=== PATIENT | female | born 1945 | race Caucasian/White ===

== ENCOUNTER 2021-05-27 19:37 | Inpatient (IN) ==
[2021-05-27] MEDS ORDERED: Naloxone 0.4 MG/ML INJ IVP PRN (19:50)
[2021-05-27] MEDS: Ipratropium/Albuterol Neb 3 ML IH SCH (20:00)
[2021-05-28] MEDS: Ipratropium/Albuterol Neb 3 ML IH SCH ×2 (00:22→04:10)
[2021-05-28] MEDS: Ondansetron 4 MG/2 ML VIAL IVP PRN ×2 (00:39→09:23)
[2021-05-28] MEDS: *HR* HYDROcodone/Acet 5/325 mg TABLET PO PRN ×2 (00:40→09:23)
[2021-05-28 05:04] LABS: Hematocrit 41.9 % (35.3-44.9); Hemoglobin 12.8 g/dL (11.5-15.4); Mean Corpuscular HGB Conc 30.5 g/dL (31.6-35.5); Mean Corpuscular Volume 91.7 fL (83.0-100.0); Mean Platelet Volume 9.3 fL (9.4-12.4); Platelet Count 238 K/mcL (140-400); Red Blood Count 4.57 M/mcL (3.82-4.97); Red Cell Distribution Width 14.6 % (11.5-14.5); White Blood Count 8.7 K/mcL (4.3-11.1)
[2021-05-28] MEDS ORDERED: D5% in Water 1,000 ML IVC PRN (05:17)
[2021-05-28] MEDS ORDERED: Dextrose Gel 15 GM/37.5 ML TUBE PO PRN ×2 (05:17)
[2021-05-28] MEDS ORDERED: *HR* Dextrose 50 % in Water (Syg) 50 ML SYRINGE IVP PRN (05:17)
[2021-05-28 05:22] LABS: BUN/Creatinine Ratio 21 (6-26); Blood Urea Nitrogen 17 mg/dL (8-23); Calcium 8.2 mg/dL (8.6-10.3); Carbon Dioxide 32 mEq/L (23-29); Chloride 97 mEq/L (98-107); Chol/HDL Ratio 4.2 (0-4.9); Cholesterol 185 mg/dL (< 200); Glucose 292 mg/dL (70-105); HDL Cholesterol 44 mg/dL (40-59); LDL Cholesterol,Calculated 126 mg/dL (< 100); Magnesium 1.4 mg/dL (1.6-2.6); Osmolality,Calculated 290 (280-300); Sodium 134 mEq/L (136-145); Triglycerides 76 mg/dL (< 150); eGFR For African Americans > 60 (> 60); eGFR For Non-African Americans > 60 (> 60)
[2021-05-28] MEDS: *HR* Enoxaparin 40 MG/0.4 ML SYRINGE SQ SCH (06:20)
[2021-05-28] MEDS ORDERED: Ipratropium 1 PUFF INHALER IH ONE (06:58)
[2021-05-28] MEDS: Ipratropium 1 PUFF INHALER IH SCH ×4 (07:22→20:08)
[2021-05-28] MEDS ORDERED: Furosemide 40 MG TABLET PO SCH (09:00)
[2021-05-28] MEDS: Insulin LISPRO 300 UNITS/3 ML VIAL SUBQ SCH ×3 (09:22→17:46)
[2021-05-28] MEDS: Dexamethasone Sodium Phos/PF 10 MG/ML VIAL IVP SCH (09:23)
[2021-05-28] MEDS: levoFLOXacin 750 MG/150 ML 750 MG/150 ML BAG IVPB SCH (09:24)
[2021-05-28] MEDS: Gabapentin 400 MG CAPSULE PO SCH (09:24)
[2021-05-28] MEDS: Insulin DETEMIR 100 UNIT/ML X5UNITS SUBQ SCH ×2 (09:25→22:58)
[2021-05-28] MEDS ORDERED: Famotidine 20 MG/2 ML VIAL IVP ONE (09:55)
[2021-05-28] MEDS: *HR* OxyCODONE/APAP 10/325 TABLET PO PRN ×2 (11:29→23:41)
[2021-05-28 11:52] LABS: Amylase 12 Units/L (29-103); Lipase 9 Units/L (11-82)
[2021-05-28 14:03] LABS: Estimated Average Glucose 209 mg/dl; Hemoglobin A1C 8.9 %
[2021-05-28] MEDS ORDERED: Remdesivir 200 MG in 0.9 % Sodium Chloride 100 ML IVPB ONE (14:17)
[2021-05-28 15:04] LABS: Ferritin 38 ng/mL (10-120)
[2021-05-28 15:56] LABS: C-Reactive Protein 44 mg/L (Less than 10)
[2021-05-28] MEDS: Furosemide 20 MG/2 ML VIAL IVP SCH (22:58)
[2021-05-28] MEDS: Remdesivir 100 MG in 0.9 % Sodium Chloride 100 ML IVPB SCH (22:58)
[2021-05-29] MEDS: Ipratropium 1 PUFF INHALER IH SCH ×7 (00:08→23:22)
[2021-05-29 03:30] LABS: Hematocrit 39.9 % (35.3-44.9); Hemoglobin 12.2 g/dL (11.5-15.4); Mean Corpuscular HGB Conc 30.6 g/dL (31.6-35.5); Mean Corpuscular Hemoglobin 27.8 pg (28.0-33.3); Mean Corpuscular Volume 90.9 fL (83.0-100.0); Mean Platelet Volume 9.8 fL (9.4-12.4); Platelet Count 243 K/mcL (140-400); Red Blood Count 4.39 M/mcL (3.82-4.97); Red Cell Distribution Width 14.5 % (11.5-14.5); White Blood Count 9.5 K/mcL (4.3-11.1)
[2021-05-29 03:47] LABS: Calcium 8.3 mg/dL (8.6-10.3); Magnesium 1.5 mg/dL (1.6-2.6)
[2021-05-29 04:00] LABS: Albumin 3.2 g/dL (3.5-5.7); Albumin/Globulin Ratio 1.1 (1.1-2.2); Bilirubin,Direct 0.1 mg/dL (0.0-0.2); Bilirubin,Indirect 0.2 mg/dL (0.0-1.0); Bilirubin,Total 0.3 mg/dL (0.3-1.0); Total Protein 6.2 g/dL (6.4-8.9)
[2021-05-29] MEDS: Acetaminophen 325 MG TABLET PO PRN (04:10)
[2021-05-29] MEDS: *HR* Enoxaparin 40 MG/0.4 ML SYRINGE SQ SCH (04:10)
[2021-05-29] MEDS: Dexamethasone Sodium Phos/PF 10 MG/ML VIAL IVP SCH (08:52)
[2021-05-29] MEDS: Gabapentin 400 MG CAPSULE PO SCH (08:52)
[2021-05-29] MEDS: *HR* OxyCODONE/APAP 10/325 TABLET PO PRN ×2 (08:53→15:43)
[2021-05-29] MEDS: Furosemide 20 MG/2 ML VIAL IVP SCH (08:53)
[2021-05-29] MEDS: levoFLOXacin 750 MG/150 ML 750 MG/150 ML BAG IVPB SCH (08:54)
[2021-05-29] MEDS: Insulin DETEMIR 100 UNIT/ML X5UNITS SUBQ SCH ×2 (08:54→21:28)
[2021-05-29] MEDS: Insulin LISPRO 300 UNITS/3 ML VIAL SUBQ SCH ×3 (08:55→17:18)
[2021-05-29] MEDS: amLODIPine 5 MG TABLET PO SCH (15:43)
[2021-05-29] MEDS: *HR* LORazepam 0.5 MG TABLET PO PRN (21:29)
[2021-05-29] MEDS: Remdesivir 100 MG in 0.9 % Sodium Chloride 100 ML IVPB SCH (21:30)
[2021-05-30] MEDS: *HR* OxyCODONE/APAP 10/325 TABLET PO PRN ×3 (01:56→21:28)
[2021-05-30] MEDS: Ipratropium 1 PUFF INHALER IH SCH ×5 (02:57→21:37)
[2021-05-30] MEDS: *HR* Enoxaparin 40 MG/0.4 ML SYRINGE SQ SCH (06:05)
[2021-05-30 08:49] LABS: Hematocrit 42.2 % (35.3-44.9); Hemoglobin 12.9 g/dL (11.5-15.4); Mean Corpuscular HGB Conc 30.6 g/dL (31.6-35.5); Mean Corpuscular Hemoglobin 27.9 pg (28.0-33.3); Mean Corpuscular Volume 91.1 fL (83.0-100.0); Platelet Count 274 K/mcL (140-400); Red Blood Count 4.63 M/mcL (3.82-4.97); Red Cell Distribution Width 14.6 % (11.5-14.5); White Blood Count 12.8 K/mcL (4.3-11.1)
[2021-05-30 09:03] LABS: Albumin 3.3 g/dL (3.5-5.7); Albumin/Globulin Ratio 0.9 (1.1-2.2); Bilirubin,Direct 0.1 mg/dL (0.0-0.2); Bilirubin,Indirect 0.2 mg/dL (0.0-1.0); Bilirubin,Total 0.3 mg/dL (0.3-1.0); Globulin 3.5 g/dL (2.4-3.5); Total Protein 6.8 g/dL (6.4-8.9)
[2021-05-30 09:04] LABS: BUN/Creatinine Ratio 38 (6-26); Blood Urea Nitrogen 39 mg/dL (8-23); Calcium 8.3 mg/dL (8.6-10.3); Carbon Dioxide 30 mEq/L (23-29); Chloride 98 mEq/L (98-107); Glucose 270 mg/dL (70-105); Osmolality,Calculated 299 (280-300); Potassium 4.5 mEq/L (3.5-5.1); Sodium 135 mEq/L (136-145); eGFR For African Americans > 60 (> 60); eGFR For Non-African Americans 52 (> 60)
[2021-05-30] MEDS: levoFLOXacin 750 MG/150 ML 750 MG/150 ML BAG IVPB SCH (10:03)
[2021-05-30] MEDS: Dexamethasone Sodium Phos/PF 10 MG/ML VIAL IVP SCH (10:04)
[2021-05-30] MEDS: amLODIPine 5 MG TABLET PO SCH (10:04)
[2021-05-30] MEDS: Gabapentin 400 MG CAPSULE PO SCH (10:04)
[2021-05-30] MEDS: Insulin DETEMIR 100 UNIT/ML X5UNITS SUBQ SCH ×2 (10:05→21:26)
[2021-05-30] MEDS: Insulin LISPRO 300 UNITS/3 ML VIAL SUBQ SCH ×3 (10:06→18:38)
[2021-05-30 13:59] LABS: Ferritin 41 ng/mL (10-120)
[2021-05-30] MEDS: Acetaminophen 325 MG TABLET PO PRN (18:50)
[2021-05-30] MEDS: *HR* LORazepam 0.5 MG TABLET PO PRN (18:51)
[2021-05-30] MEDS: Remdesivir 100 MG in 0.9 % Sodium Chloride 100 ML IVPB SCH (21:25)
[2021-05-31] MEDS: Ipratropium 1 PUFF INHALER IH SCH ×4 (01:09→11:47)
[2021-05-31] MEDS: *HR* Enoxaparin 40 MG/0.4 ML SYRINGE SQ SCH (05:43)
[2021-05-31 06:27] LABS: Hematocrit 40.7 % (35.3-44.9); Hemoglobin 12.7 g/dL (11.5-15.4); Mean Corpuscular HGB Conc 31.2 g/dL (31.6-35.5); Mean Corpuscular Hemoglobin 28.2 pg (28.0-33.3); Mean Corpuscular Volume 90.4 fL (83.0-100.0); Platelet Count 278 K/mcL (140-400); Red Cell Distribution Width 14.5 % (11.5-14.5); White Blood Count 12.3 K/mcL (4.3-11.1)
[2021-05-31 07:10] LABS: Albumin 3.5 g/dL (3.5-5.7); Bilirubin,Direct 0.1 mg/dL (0.0-0.2); Bilirubin,Indirect 0.2 mg/dL (0.0-1.0); Bilirubin,Total 0.3 mg/dL (0.3-1.0); Globulin 3.6 g/dL (2.4-3.5); Total Protein 7.1 g/dL (6.4-8.9)
[2021-05-31 07:12] LABS: Alanine Aminotransferase 10 Units/L (7-52); Albumin 3.4 g/dL (3.5-5.7); Alkaline Phosphatase 65 Units/L (34-104); Aspartate Amino Transferase 13 Units/L (13-39); BUN/Creatinine Ratio 45 (6-26); Bilirubin,Total 0.3 mg/dL (0.3-1.0); Blood Urea Nitrogen 38 mg/dL (8-23); Calcium 8.4 mg/dL (8.6-10.3); Carbon Dioxide 29 mEq/L (23-29); Chloride 98 mEq/L (98-107); Globulin 3.5 g/dL (2.4-3.5); Glucose 177 mg/dL (70-105); Magnesium 1.6 mg/dL (1.6-2.6); Osmolality,Calculated 289 (280-300); Potassium 4.8 mEq/L (3.5-5.1); Sodium 133 mEq/L (136-145); Total Protein 6.9 g/dL (6.4-8.9); eGFR For African Americans > 60 (> 60); eGFR For Non-African Americans > 60 (> 60)
[2021-05-31 07:39] VITALS: RESP 16
[2021-05-31] MEDS: Acetaminophen 325 MG TABLET PO PRN (08:38)
[2021-05-31] MEDS: Gabapentin 400 MG CAPSULE PO SCH (08:38)
[2021-05-31] MEDS: Dexamethasone Sodium Phos/PF 10 MG/ML VIAL IVP SCH (08:39)
[2021-05-31] MEDS: Insulin DETEMIR 100 UNIT/ML X5UNITS SUBQ SCH (08:44)
[2021-05-31] MEDS ORDERED: lisinopriL 20 MG TABLET PO SCH (09:00)
[2021-05-31] MEDS ORDERED: levoFLOXacin 750 MG TABLET PO SCH (09:00)
[2021-05-31] MEDS: Insulin LISPRO 300 UNITS/3 ML VIAL SUBQ SCH ×2 (09:01→13:06)
[2021-05-31 11:53] VITALS: BP 144/80; PULSE 63; TEMP 98; O2SAT 96
[2021-05-31 13:02] LABS: C-Reactive Protein 11 mg/L (Less than 10)
[2021-05-31 13:21] LABS: Ferritin 39 ng/mL (10-120)
== END 2021-05-31 14:02 | disposition home health service (06) | DRG 177 ==
LOC: INPGRE
PROVIDERS: ADMIT Family Medicine; ATTEND Family Medicine